=== PATIENT | female | born 1990 | race American Indian/Alaskan Native ===

== ENCOUNTER 2016-10-20 19:08 | Emergency (ER) | payer BC ==
[2016-10-20 20:43] LABS: Basophils % (Auto) 0.4 % (0.0-1.8); Eosinophils % (Auto) 0.8 % (0.0-4.3); Hematocrit 37.1 % (30.3-42.9); Mean Corpuscular HGB Conc 33 % (30-34); Mean Corpuscular Volume 74 fl (79-97); Platelet Count 309 K/mm3 (140-440); Red Blood Count 5.04 M/mm3 (3.65-5.03); Red Cell Distribution Width 16.9 % (13.2-15.2)
[2016-10-20 21:01] LABS: Mean Corpuscular Hemoglobin 24 pg (28-32)
[2016-10-20 21:32] LABS: Bilirubin,Urine NEG (Negative); Blood,Urine LG (Negative); Ketones,Urine NEG (Negative); Leukocyte Esterase,Urine NEG (Negative); Nitrite,Urine NEG (Negative); Protein,Urine <15 mg/dL mg/dL (Negative); Urobilinogen,Urine < 2.0 mg/dL (<2.0)
--- NOTE | 2016-10-20 22:14 | Ultrasound Report ---
FINAL REPORT PROCEDURE: US OB \T\lt; = 14 WEEKS FETUS TECHNIQUE: Real-time transabdominal sonography of the uterus, placenta, amniotic fluid, adnexa, and fetus was performed with image documentation. Measurements were obtained to determine age/size. M-mode Doppler was used to document heartbeat. CPT 74995 HISTORY: bleeding COMPARISON: No prior studies are available for comparison. FINDINGS: CRL: 14.6 mm, which corresponds to a gestational age of: 7 weeks, 6 days. Yolk Sac: Normal. Embryonic Cardiac Activity: 150 Gestational Sac: Normal. Amniotic fluid: Normal. Cervix: Normal. Right Ovary: Normal. Left Ovary: Normal. Estimated delivery date: 06/02/2017 Uterus and adnexa: Normal. IMPRESSION: Single live intrauterine gestation at approximately 7 weeks and 6 days. EDC by 06/02/2017
--- NOTE | 2016-10-20 22:16 | Ultrasound Report ---
FINAL REPORT PROCEDURE: US OB TRANSVAGINAL TECHNIQUE: Real-time transvaginal sonography of the uterus, placenta, amniotic fluid, adnexa, and fetus was performed with image documentation. Measurements were obtained to determine age/size. M-mode Doppler was used to document heartbeat. CPT 15071 HISTORY: bleeding COMPARISON: No prior studies are available for comparison. FINDINGS: CRL: 14.6mm, which corresponds to a gestational age of: 7weeks, days. Yolk Sac: 6 Embryonic Cardiac Activity: 150 Gestational Sac: Normal. Right Ovary: Normal. Left Ovary: Normal. Estimated delivery date: Comment: Complete anatomic survey at 18-20 weeks suggested. 06/02/2017 IMPRESSION: 1. Single living intrauterine gestation at approximately 7 weeks and 6 days 2. EDC by US 06/02/2017.
--- NOTE | 2016-10-21 02:23 | Emergency Department Report ---
HPI - General Chief Complaint: Vaginal Bleeding Time Seen by Provider: 10/21/16 02:02 - HPI HPI: Patient is a 25-year-old female currently 8 weeks gestation according to her last menstrual period of 08/20/2015. Patient states she had sex with her partner shortly after that she started to experience some vaginal spotting. Patient states vaginal spotting for several hours. Patient states she has not been to OB for care as of yet. Patient states her last ended up in a spontaneous 6 weeks gestation. She denies abdominal pain, fever, dysuria, ED Past Medical Hx - Past Medical History Previous Medical History?: Yes Additional medical history: 8 weeks - Social History Smoking Status: Never Smoker - Medications Home Medications: Home Medications Medication Instructions Recorded Confirmed Last Taken Type Pnv95/Ferrous Fumarate/FA 1 each PO DAILY 10/20/16 10/20/16 Unknown History [ Caplet] Doxylamine/Pyridoxine HCl 2 each PO QHS #40 tablet. 10/21/16 Unknown Rx [Claudette Archer 10-10 mg Tablet] Progesterone,Micronized 200 mg PO DAILY #20 cap 10/21/16 Unknown Rx [Progesterone] ED Review of Systems ROS: Stated complaint: 8 WKS W/BLEEDING Other details as noted in HPI Constitutional: denies: chills, fever Eyes: denies: eye pain, eye discharge, vision change ENT: denies: ear pain, throat pain Respiratory: denies: cough, shortness of breath, wheezing Cardiovascular: denies: chest pain, palpitations Endocrine: no symptoms reported Gastrointestinal: denies: abdominal pain, nausea, diarrhea Genitourinary: as per HPI. denies: urgency, dysuria, frequency, hematuria, discharge, abnormal menses Musculoskeletal: denies: back pain, joint swelling, arthralgia Skin: denies: rash, lesions Neurological: denies: headache, weakness, paresthesias Psychiatric: denies: anxiety, depression Hematological/Lymphatic: denies: easy bleeding, easy bruising Physical Exam - Physical Exam Vital Signs: Vital Signs 10/20/16 19:26 Temperature 98.6 F Pulse Rate 92 H Respiratory 20 Rate Blood Pressure 131/74 O2 Sat by Pulse 100 Oximetry Physical Exam: GENERAL: Alert and oriented x3, no apparent distress, Normal Gait, atraumatic. HEAD: Head is normocephalic and a-traumatic. EYES: Extra ocular muscles are intact. Pupils are equal, round, and reactive to light and accommodation. LUNGS: Symetrical with respiration, No wheezing, no rales or crackles, CTAB. HEART: S1, S2 present, regular rate and rhythm without murmur, no rubs, no gallops. Non tender to palpation ABDOMEN: No organomegaly was noted,Positive bowel sounds, soft, and non- distended. . Nontender to palpation on all Quadrants, NO CVA tenderness. GENITOURINARY: External genitalia without erythema, exudate or discharge. Vaginal vault is with no discharge or active bleed. Cervix is of normal color without lesion. Cervical os is closedwith minimal clear tinged blood mucusy d/ c. No bleeding noted. Uterus is noted to be of normal size and nontender. No cervical motion tenderness. No masses are palpated. The adnexa are without masses or tenderness. PSYCHIATRIC: Mood is congruent with affect, denies suicidal or homicidal ideations. SKIN: Warm and dry, No lesions, No ulceration or induration present. ED Course Vital Signs 10/20/16 19:26 Temperature 98.6 F Pulse Rate 92 H Respiratory 20 Rate Blood Pressure 131/74 O2 Sat by Pulse 100 Oximetry ED Medical Decision Making - Lab Data Result diagrams: 10/20/16 19:39 - Radiology Data Radiology results: report reviewed, image reviewed FINAL REPORT PROCEDURE: US OB T lt; = 14 WEEKS FETUS TECHNIQUE: Real-time transabdominal sonography of the uterus, placenta, amniotic fluid, adnexa, and fetus was performed with image documentation. Measurements were obtained to determine age/size. M-mode Doppler was used to document heartbeat. CPT 00394 HISTORY: bleeding COMPARISON: No prior studies are available for comparison. FINDINGS: CRL: 14.6 mm, which corresponds to a gestational age of: 7 weeks, 6 days. Yolk Sac: Normal. Embryonic Cardiac Activity: 150 Gestational Sac: Normal. Amniotic fluid: Normal. Cervix: Normal. Right Ovary: Normal. Left Ovary: Normal. Estimated delivery date: 06/02/2017 Uterus and adnexa: Normal. IMPRESSION: Single live intrauterine gestation at approximately 7 weeks and 6 days. EDC by 06/02/2017 Transcribed By: [facility] [place] Dictated By: CLAUDETTE SALAS Electronically Authenticated By: CLAUDETTE SALAS Signed Date/Time: 10/20/160 - Medical Decision Making 25-year-old female present with threatened ED course: CBC, BMP, urinalysis, beta hCG, OB ultrasound performed in ED CBC normal BMP and normal urinalysis normal. HCG greater than 34,000. Ultrasound shows at 7 weeks 6 days cardiac activity of 150 bpm Discussed his findings with patient. Discussed the patient this is a 3 and miscarriage and could potentially lead to a spontaneous miscarriage. Discuss if any new symptoms or new onset of vaginal bleeding and abdominal cramping to return to the ED. Discussed with patient to abstain from intercourse for the next month. Discussed follow-up with OB doctor as referred. Critical care attestation.: If time is entered above; I have spent that time in minutes in the direct care of this critically ill patient, excluding procedure time. ED Disposition Clinical Impression: Threatened in first trimester Disposition: [id number] TO HOME OR SELFCARE Is pt being admited?: No Does the pt Need Aspirin: No Condition: Stable Instructions: Spontaneous Miscarriage (ED), Threatened Miscarriage (ED), (ED) Additional Instructions: If new symptoms or symptoms worsen please return to ED. Follow-up with PURCHASING DIRECTOR Prescriptions: Doxylamine/Pyridoxine HCl [Claudette Archer 10-10 mg Tablet] 2 each PO QHS #40 tablet. Progesterone,Micronized [Progesterone] 200 mg PO DAILY #20 cap Referrals: PRIMARY CARE, [Primary Care Provider] - 3-5 Days GOSIA CAR MD [Referring] - 3-5 Days MARTHA SHAFFER MD [Referring] - 3-5 Days RAMOS GIRON MD [Referring] - 3-5 Days PURVI GIRON MD [Referring] - 3-5 Days Forms: Accompanied Note, Work/School Release Form(ED) Time of Disposition: 03:12
[2016-10-21 03:26] VITALS: BP 132/78
== END 2016-10-21 03:30 | disposition home or self-care (01) ==
LOC: ED 19:08
DX: O20.0 Threatened abortion (principal); Z3A.08 8 weeks gestation of pregnancy
CPT/HCPCS: 36415; 76801; 76817; 81001; 84702; 85025; 86850; 86900; 86901; 99284